=== PATIENT | male | born 1980 | race Caucasian/White ===

== ENCOUNTER 2021-06-08 06:25 | Observation (INO) | payer OTHER ==
[~2021-06-08] VITALS: Ht 190.5 cm; Wt 200.0 kg
--- NOTE | ~2021-06-08 | P ---
[facility] [place] [address] PROCEDURE REPORT Name: ROBER MOREIRA Room #: 210-P [facility] Meggan Stewart#: [id number] Admission: 06/08/21 Attend Phys: Genaro Goldstein MD Discharge: 06/09/21 Date of : 80 Report #: [id number] THIS REPORT FOR: cc: Delon Tan Bradley L. DO Couchonnal, Luis F. MD ~ PREOPERATIVE DIAGNOSIS: Supraventricular tachycardia. POSTOPERATIVE DIAGNOSIS: Typical atrioventricular juni reentry tachycardia. PROCEDURE PERFORMED: 1. SVT ablation. CPT code 66588. 2. 3D mapping. CPT code 13594. 3. EP left atrial pacing and recording. CPT code 03353. 4. Program stimulation pacing after IV drug infusion. CPT code 28744. DESCRIPTION OF PROCEDURE: The patient was brought to the EP laboratory in fasting and sedated state, prepped and draped in a sterile fashion. I obtained access to the right femoral vein x4. I placed 8, 2, 6 and a 7-[place] short sheath on the right femoral vein. Of note, right femoral vein access was quite difficult given his morbid obesity. In fact, my standard needle could not reach the vein and hubbed to the skin, therefore a longer needle was required. In attempt to obtain access, I did hit the artery 2 or 3 times as well given his large size, but eventually 4 sheaths were positioned using the modified Seldinger technique. Next, under fluoroscopy, 3 quadripolar catheters were placed at the HRA, His and RV positions and a decapolar catheter was placed easily in the coronary sinus for left atrial pacing and recording. At baseline, the patient was in sinus rhythm, sinus cycle length of 870 milliseconds, FL interval 155 milliseconds, QRS duration 99 milliseconds, QT interval 410 milliseconds, AH interval 85 milliseconds, HV interval 35 milliseconds. Atrial burst pacing was performed and AV block was noted at 340 milliseconds. Next, single atrial extrastimuli were delivered and at 250 and at [address] cycle length. The patient went into SVT tachycardia cycle length 375 milliseconds, septal VA time of 50 milliseconds and terminated with an ____, consistent with typical AV juni reentrant tachycardia. Ventricular pacing was performed and VA block was noted at 310 milliseconds. Ventricular ERP was noted at 230 milliseconds at a [address] cycle length[address] I continued to try to induce SVT again and this was not possible. Therefore, isoproterenol infusion was initiated at 1 mcg per minute and with atrial burst pacing, again the patient went into SVT tachycardia cycle length 390 milliseconds, septal VA time of 50 milliseconds. Ventricular entrainment demonstrated a VAHV response consistent with typical AV juni reentrant tachycardia. 3D mapping and ablation: Next the HRA catheter was removed and a SR0 sheath and a 4 mm Biosense Traylor ablation catheter was placed into the right atrium. 3D [facility] [address] [place] [address] PROCEDURE REPORT Name: ROBER MOREIRA Room #: 210-P [facility] Meggan TrammellRWill#: [id number] Admission: 06/08/21 Attend Phys: Genaro Goldstein MD Discharge: 06/09/21 Date of : 80 Report #: [id number] mapping of the right atrium was created and the His region was labeled and a map of the slow pathway was also performed. Next, ablation was performed at 50 harley and 55 degrees. The first four lesions did not result in any junctionals; lesions #5 and #6 each resulted in 30 and 60 ____ junctionals respectively. There was never any AV juni compromise. At such, at this point, a basic EP study was performed again. At baseline, the patient was again in sinus rhythm and AV block was noted at 310 milliseconds. Isoproterenol infusion was started at 1 mcg per minute. AV block was noted at 260. Atrial ERP was noted at 210 milliseconds at [address] cycle length. Aggressive atrial and ventricular pacing maneuvers were performed and no further SVT was inducible. As such, the procedure was concluded. Post-ablation, the patient remained in sinus rhythm, sinus cycle length of 615 milliseconds, FL interval 130 milliseconds, QRS duration 100 milliseconds, QT interval 430 milliseconds. As such, all catheters and sheaths were pulled. Hemostasis was obtained and there were no procedure related complications. I did recommend staying overnight given his morbid obesity and difficult venous access. CONCLUSION: 1. Successful ablation of typical AV juni reentry tachycardia. 2. Normal SA juni function. 3. Normal AV juni function. 4. Normal His-Purkinje function. 5. No other inducible arrhythmias on or off isoproterenol. By: [id number] Genaro Goldstein MD /nt
[~2021-06-08 06:25] MED LIST: LEVAQUIN 500 M500 M6 PO; MEDROLDOSEPACK PO; METOPROLOL TART25 MG PO; NOHOMEMEDICATIONS
[2021-06-08 07:31] VITALS: BP 150/65
[2021-06-08] MEDS ORDERED: LOPRESSOR50 MG PO (07:47)
[2021-06-08] MEDS ORDERED: SYNTHROID75 MC1 PO (07:49)
[2021-06-08] MEDS ORDERED: FLECAINIDE ACET50 M1 PO (07:49)
[2021-06-08 07:52] LABS: ABSOLUTE NEUTROPHILS 5.9 thou/uL (1.4-8.2); BASOPHILS 0.4 % (0.0-2.0); EOSINOPHILS 1.8 % (0.0-3.0); HEMATOCRIT 40.8 % (42.0-52.0); HEMOGLOBIN 13.6 gm/dL (14.0-18.0); LYMPHOCYTES 18.2 % (24.0-44.0); MCH 30.8 pg (26.0-34.0); MCHC 33.4 g/dL (28.0-37.0); MCV 92.1 fL (80.0-100.0); MONOCYTES 5.8 % (1.0-8.0); PLATELET COUNT 217 thou/uL (150-400); POLYS 73.8 % (36.0-66.0); RBC 4.43 mil/uL (4.50-6.00); RDW 14.2 % (10.5-14.5); WBC 7.9 thou/uL (4.0-11.0)
[2021-06-08 08:00] LABS: CALCIUM 8.6 mg/dL (8.5-10.1); POTASSIUM 4.1 mmol/L (3.5-5.1)
[2021-06-08 08:06] LABS: ALBUMIN 3.6 g/dL (3.4-5.0); TOTAL BILIRUBIN 0.4 mg/dL (0.2-1.0); TOTAL PROTEIN 7.7 g/dL (6.4-8.2)
[2021-06-08 08:08] LABS: PROTIME 10.9 Seconds (10.5-12.1)
[2021-06-08 13:15] VITALS: BP 104/67
--- NOTE | 2021-06-08 13:46 | NUR ---
PT TRANSFER TO CCU AT APPROX 1310. RIGHT GROIN SITE IS C/D/I, NON TENDER, NO HEMATOMA. PT DENIES PAIN. PT AFEBRILE, ADEQUATE UOP, BM THIS AM, APPROPRIATE APPETITE. PT AND AT BEDSIDE HAVE BEEN THOUROUGHLY UPDATED AND EDUCATED ABOUT BEDREST/BODY POSITIONING/ AND S/S TO TELL NURSE ABOUT IN REGARDS TO PROCEDURE. PT PROGRESSING TOWARDS POC.
[2021-06-08 15:30] VITALS: BP 143/79
[2021-06-08 16:55] VITALS: BP 123/77
[2021-06-08 20:00] VITALS: BP 116/64
[2021-06-08 20:10] VITALS: BP 116/64
[2021-06-09 04:45] VITALS: BP 131/76
[2021-06-09 05:25] LABS: HEMATOCRIT 41.2 % (42.0-52.0); HEMOGLOBIN 13.7 gm/dL (14.0-18.0); MCH 30.5 pg (26.0-34.0); MCHC 33.3 g/dL (28.0-37.0); MCV 91.7 fL (80.0-100.0); RBC 4.5 mil/uL (4.50-6.00); RDW 13.8 % (10.5-14.5); WBC 13.3 thou/uL (4.0-11.0)
[2021-06-09 07:20] VITALS: BP 142/74
[2021-06-09 08:50] VITALS: BP 131/76
[2021-06-09] MEDS ORDERED: ASPIRIN EC81 M1 PO (09:12)
--- NOTE | 2021-06-09 10:57 | NUR ---
PT ALERT AND ORIENTED TIMES FOUR. VSS. SR ON TELE. PT DENIES PAIN/SOA. RIGHT GROIN SITE SOFT NON TENDER. PT TOLERATES MEDS AND MEALS. PLANS FOR DISHARGE TODAY.
== END 2021-06-09 09:57 | disposition home or self-care (01) ==
LOC: CATH 06:25 → 2N 13:22
PROVIDERS: ADMIT Internal Medicine Cardiovascular Disease; ATTEND Internal Medicine Cardiovascular Disease
DX: I47.1 Supraventricular tachycardia (principal); Z20.822 Contact with and (suspected) exposure to COVID-19; E66.01 Morbid (severe) obesity due to excess calories; E03.9 Hypothyroidism, unspecified; F17.200 Nicotine dependence, unspecified, uncomplicated; Z79.899 Other long term (current) drug therapy
CPT/HCPCS: 10797; 62110; 62900; 70005